=== PATIENT | male | born 1985 | race Caucasian/White ===

== ENCOUNTER 2023-01-11 12:09 | Emergency (ER) | payer BC, MEDICAID | END 2023-01-11 15:27 | disposition home or self-care (01) | LOC: JD.ED 12:09 | DX: M54.50 Low back pain, unspecified (principal); M54.6 Pain in thoracic spine; Z87.891 Personal history of nicotine dependence; Z86.16 Personal history of COVID-19; W19.XXXA Unspecified fall, initial encounter; Y92.89 Other specified places as the place of occurrence of the external cause; Y99.0 Civilian activity done for income or pay | CPT/HCPCS: 71101-26-RT; 71101-RT; 72100; 72100-26; 99283 ==